=== PATIENT | male | born 1970 | race Caucasian/White ===

== ENCOUNTER 2023-12-05 15:25 | Emergency (ER) | payer OTHER, SELFPAY ==
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
[2023-12-05 15:36] VITALS: BP 152/94; PULSE 83; RESP 18; TEMP 36.9; O2SAT 96
[2023-12-05 15:47] VITALS: BP 152/94; PULSE 83; RESP 18; TEMP 36.9; O2SAT 96
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
== END 2023-12-05 17:24 | disposition home or self-care (01) ==
PROVIDERS: Emergency Provider Nurse Practitioner
DX: S22.31XA Fracture of one rib, right side, initial encounter for closed fracture (principal); V86.36XA Unspecified occupant of dirt bike or motor/cross bike injured in traffic accident, initial encounter; F17.210 Nicotine dependence, cigarettes, uncomplicated
CPT/HCPCS: 71101; 99203; G0463